=== PATIENT | female | born 1965 | race Hispanic/Latino ===

== ENCOUNTER 2020-01-14 10:47 | Inpatient (IN) | payer OTHER ==
[2020-01-14 12:22] LABS: HEMATOCRIT 31.5 % (36-48); MEAN CORPUSCULAR HEMOGLOBIN 27.4 pg (27.0-33.0); MEAN CORPUSCULAR HGB CONC 33.3 g/dL (32.0-36.0); MEAN CORPUSCULAR VOLUME 82.2 fL (79-99); RED BLOOD CELL COUNT(AUTO) 3.83 MIL/uL (4.00-5.50); RED CELL DISTRIBUTION WIDTH 15.6 % (11.0-15.5); WHITE BLOOD COUNT (AUTO) 4.1 K/uL (4.8-10.8)
[2020-01-14 12:28] LABS: CREATININE 1.2 mg/dL (0.5-1.5); POTASSIUM 4.4 mmol/L (3.5-5.1)
[2020-01-14 12:38] LABS: INR 0.88 (0.85-1.15); PARTIAL THROMBOPLASTIN TIME 25.2 SEC (26.3-35.5); PROTHROMBIN TIME 9.5 SEC (9.6-11.6)
[2020-01-14 12:41] LABS: ALBUMIN 1.3 g/dL (3.5-5.0); BILIRUBIN,TOTAL 0.2 mg/dL (0.2-1.0); THYROID STIMULATING HORMONE 2.13 uIU/mL (0.36-3.74)
[2020-01-14] MEDS ORDERED: LIDOCAINE HCL 2% 20ML ONE (13:52)
[2020-01-14] MEDS ORDERED: MIDAZOLAM HCL 1 MG/ML 2ML VIAL ONE (13:52)
[2020-01-14 13:53] LABS: APPEARANCE,URINE CLEAR (CLEAR); BILIRUBIN,URINE SMALL (NEGATIVE); COLOR,URINE YELLOW (YELLOW); GLUCOSE, URINE (UA) NEGATIVE (NEGATIVE); KETONES,URINE 5 mg/dL (NEGATIVE); LEUKOCYTE ESTERASE ,URINE NEGATIVE (NEGATIVE); NITRATE,URINE NEGATIVE (NEGATIVE); OCCULT BLOOD,URINE LARGE (NEGATIVE); PROTEIN,URINE >=300 mg/dL (NEGATIVE); UROBILINOGEN,URINE 0.2 mg/dL (0.2-1.0)
[2020-01-14 14:19] LABS: BACTERIA,URINE Few /HPF (None Seen); HYALINE CASTS, URINE 0-1 /LPF (0-1 /LPF); MUCUS,URINE Moderate LPF (None Seen); RBC,URINE 0-1 /HPF (0-1); SQUAMOUS EPITHELIAL CELL,UR Rare /HPF (0-2)
[2020-01-14] MEDS ORDERED: FUROSEMIDE 10 MG/ML 4ML VIAL ONE (14:52)
[2020-01-14 17:00] VITALS: BP 120/74
--- NOTE | 2020-01-14 17:00 | NUR ---
ASSESSMENT ORIENTED PT TO ROOM AND CALL LIGHT. RIGHT GROIN INTACT, NO HEMATOMA, PEDAL PULSES PALPABLE. CALL LIGHT WITHIN REACH
[2020-01-14 17:15] VITALS: BP 114/74
[2020-01-14] MEDS ORDERED: SODIUM CHLORIDE 0.9% 10 ML VIAL IVP PRN (17:15)
[2020-01-14 17:30] VITALS: BP 120/68
[2020-01-14 17:45] VITALS: BP 122/77
[2020-01-14] MEDS ORDERED: METO25TA3 PO (18:27)
[2020-01-14] MEDS ORDERED: LISI-617 PO (18:28)
[2020-01-14] MEDS ORDERED: SIMV10TA97 PO (18:28)
[2020-01-14] MEDS ORDERED: FURO40TA7 PO (18:29)
[2020-01-14] MEDS ORDERED: LEVO50TA11 PO (18:30)
[2020-01-14] MEDS ORDERED: MECL-183 PO (18:32)
[2020-01-14] MEDS ORDERED: LEVO750T46 PO (18:32)
[2020-01-14] MEDS: FUROSEMIDE 10 MG/ML 4ML VIAL IV SCH (19:30)
[2020-01-14 19:48] VITALS: BP 106/56
[2020-01-14] MEDS: FAMOTIDINE 20MG TAB 20 MG TAB PO SCH (21:29)
[2020-01-14 23:36] LABS: PROTEIN,URINE RANDOM 1456.8 mg/dL (0-11.9)
[2020-01-14 23:49] VITALS: BP 116/70
[2020-01-15] VITALS (11 sets, daily range): BP systolic 89–117; BP diastolic 48–79
[2020-01-15 04:36] LABS: MEAN CORPUSCULAR HEMOGLOBIN 27.8 pg (27.0-33.0); MEAN CORPUSCULAR HGB CONC 33.3 g/dL (32.0-36.0); MEAN CORPUSCULAR VOLUME 83.3 fL (79-99); PLATELET COUNT (AUTO) 162 K/uL (130-400); RED BLOOD CELL COUNT(AUTO) 3.24 MIL/uL (4.00-5.50); RED CELL DISTRIBUTION WIDTH 15.3 % (11.0-15.5)
[2020-01-15] MEDS: FUROSEMIDE 10 MG/ML 4ML VIAL IV SCH (04:56)
[2020-01-15 05:19] LABS: ALBUMIN 1.1 g/dL (3.5-5.0); BILIRUBIN,TOTAL 0.1 mg/dL (0.2-1.0); CREATININE 1.3 mg/dL (0.5-1.5); PHOSPHORUS 5.2 mg/dL (2.5-4.9); POTASSIUM 4.2 mmol/L (3.5-5.1); TOTAL PROTEIN, SERUM 5.1 g/dL (6.0-8.3)
[2020-01-15] MEDS: LEVOTHYROXINE 50 MCG TABLET PO SCH (06:05)
[2020-01-15 06:09] LABS: BASOPHILS % (MANUAL) 2 % (0-2); EOSINOPHILS % (MANUAL) 2 % (1-6); LYMPHOCYTES % (MANUAL) 22 % (22-44); MAN.DIFF COMMENT-IMPRESSION MANUAL DIFFERENTIAL; MONOCYTES % (MANUAL) 6 % (2-9); SEGMENTED NEUTROPHILS % 68 % (40-70)
[2020-01-15 06:10] LABS: PLATELET MORPHOLOGY COMMENT ADEQUATE
[2020-01-15 06:41] LABS: INR 0.9 (0.85-1.15); PARTIAL THROMBOPLASTIN TIME 25.6 SEC (26.3-35.5); PROTHROMBIN TIME 9.8 SEC (9.6-11.6)
[2020-01-15] MEDS: FAMOTIDINE 20MG TAB 20 MG TAB PO SCH ×2 (09:00→19:51)
[2020-01-15] MEDS: METOPROLOL SUCCINATE 50 MG TAB.SR.24H PO SCH (09:00)
[2020-01-15] MEDS ORDERED: ENOXAPARIN SODIUM 40 MG/0.4 ML SYRINGE SQ SCH (09:00)
[2020-01-15] MEDS ORDERED: MIDAZOLAM HCL 1 MG/ML 2ML VIAL ONE (10:38)
[2020-01-15] MEDS ORDERED: FENTANYL CITRATE PF 50 MCG/1 ML 2ML VIAL ONE (10:38)
--- NOTE | 2020-01-15 11:15 | NUR ---
CT GD RT RENAL BX PROCEDURE PERFORMED BY DR Mateo GODFREY. PUNCTURE SITE RT LOWER BACK AND PATIENT TOLERATED PROCEDURE WELL. SPECIMEN X 4 COLLECTED AND SENT TO LAB. END OF PROCEDURE AT 1050. BIOPSY NEEDLE REMOVED AND DRESSING APPLIED. NO BLEEDING NOTED. REPORT GIVEN TO Denise GARBER RN AND PATIENT TRANSPORTED TO [facility] VIA BED AT 1115. AAO X3 WITH NO C/O PAIN.
--- NOTE | 2020-01-15 12:25 | NUR ---
LT THORACENTESIS @ 1225 DR VELA IN RM. PT PLACED ON NC @ 2L. @ 1232 PROCEDURE TIME OUT DONE @ THIS TIME. @ 1233 LT THORACENTESIS STARTED @ 1238 LT THORACENTESIS ENDED. 600 ML OF PLEURAL FLUID REMOVED. @ 1240 DR VELA OUT OF RM. V/S RECORDED IN V/S SPREADSHEET. PT TOLERATED PROCEDURE WELL. NO DISTRESS NOTED. PT MAY RESUME DIET.
[2020-01-15] MEDS: LISINOPRIL 5 MG TABLET PO SCH (14:22)
[2020-01-15 20:10] LABS: APPEARANCE BODY FLUID SLIGHTLY CLOUDY (CLEAR); COLOR,BODY FLUID LT YELLOW (LT YELLOW); SPECIMENTYPE,BODY FLUID PLEURAL
[2020-01-15 20:11] LABS: BODY FLUID RBC 120 /cu. mm.; BODY FLUID WBC 72 /cu. mm.; TOTAL VOLUME,BODY FLUID 600 mL
[2020-01-15 21:10] LABS: BF LYMPHOCYTE 51 %; BF MONOCYTE 2 %; BF OTHER CELLS 5
[2020-01-16] VITALS (7 sets, daily range): BP systolic 91–127; BP diastolic 55–82
[2020-01-16 04:05] LABS: HEMATOCRIT 26.2 % (36-48); MEAN CORPUSCULAR HEMOGLOBIN 27.6 pg (27.0-33.0); MEAN CORPUSCULAR HGB CONC 32.8 g/dL (32.0-36.0); RED BLOOD CELL COUNT(AUTO) 3.12 MIL/uL (4.00-5.50); RED CELL DISTRIBUTION WIDTH 15.6 % (11.0-15.5); WHITE BLOOD COUNT (AUTO) 3.6 K/uL (4.8-10.8)
[2020-01-16 04:16] LABS: INR 0.92 (0.85-1.15); PARTIAL THROMBOPLASTIN TIME 25.2 SEC (26.3-35.5)
[2020-01-16 04:24] LABS: CREATININE 1.6 mg/dL (0.5-1.5); CRP QUANTITATIVE 7.9 mg/L (0.00-9.0); MAGNESIUM 2.1 mg/dL (1.80-2.40); PHOSPHORUS 4.8 mg/dL (2.5-4.9); POTASSIUM 4.2 mmol/L (3.5-5.1)
[2020-01-16] MEDS: LEVOTHYROXINE 50 MCG TABLET PO SCH (05:48)
[2020-01-16] MEDS: METOPROLOL SUCCINATE 50 MG TAB.SR.24H PO SCH (09:00)
[2020-01-16] MEDS ORDERED: ENOXAPARIN SODIUM 40 MG/0.4 ML SYRINGE SQ SCH (09:00)
[2020-01-16] MEDS: LISINOPRIL 5 MG TABLET PO SCH (09:00)
[2020-01-16] MEDS: FAMOTIDINE 20MG TAB 20 MG TAB PO SCH ×2 (09:32→21:07)
[2020-01-16] MEDS ORDERED: SODIUM CHLORIDE 0.9% 500ML 500 ML IV SCH (16:30)
[2020-01-16] MEDS ORDERED: ACETAMINOPHEN 325 MG TAB PO PRN (16:30)
[2020-01-16] MEDS ORDERED: ALBUMIN (HUMAN) 25% 100 ML IV PRN (16:45)
[2020-01-16] MEDS ORDERED: ONDANSETRON HCL 4 MG/2 ML VIAL IVP PRN (16:45)
[2020-01-16] MEDS: PREDNISONE 10 MG TABLET PO SCH (17:20)
--- NOTE | 2020-01-16 17:23 | NUR ---
CM NOTE/IA MEET WITH PATIENT IN ROOM, PER PATIENT, IS INDEPENDENT WITH ADLS, LIVES WITH SIBLING AND HER 16 YR OLD DAUGHTER, NO DME IN USE, NO HH OR PROVIDER SERVICES IN USE, AND FEELS SAFE TO RETURN HOME. Addendum: 01/16/20 at 1724 by POLO ARITA RN CM Amended: Links added.
[2020-01-16] MEDS: ACETAMINOPHEN 325 MG TAB PO PRN (17:35)
[2020-01-17 03:35] VITALS: BP 124/79
[2020-01-17 03:47] LABS: BASOPHILS % (AUTO) 0.2 % (0.0-5.0); EOSINOPHILS % (AUTO) 0.2 % (0.0-8.0); HEMATOCRIT 26.9 % (36-48); LYMPHOCYTES % (AUTO) 16.2 % (21.0-51.0); MEAN CORPUSCULAR HEMOGLOBIN 27.4 pg (27.0-33.0); MEAN CORPUSCULAR HGB CONC 32.3 g/dL (32.0-36.0); MEAN CORPUSCULAR VOLUME 84.6 fL (79-99); MONOCYTES % (AUTO) 3.7 % (3.0-13.0); NEUTROPHILS % (AUTO) 78.1 % (40.0-77.0); PLATELET COUNT (AUTO) 146 K/uL (130-400); RED BLOOD CELL COUNT(AUTO) 3.18 MIL/uL (4.00-5.50); RED CELL DISTRIBUTION WIDTH 15.4 % (11.0-15.5); WHITE BLOOD COUNT (AUTO) 4.4 K/uL (4.8-10.8)
[2020-01-17 04:03] LABS: ALBUMIN 1.5 g/dL (3.5-5.0); BILIRUBIN,TOTAL 0.1 mg/dL (0.2-1.0); CREATININE 1.2 mg/dL (0.5-1.5); MAGNESIUM 2.3 mg/dL (1.80-2.40); POTASSIUM 4.5 mmol/L (3.5-5.1); TOTAL PROTEIN, SERUM 5.5 g/dL (6.0-8.3)
[2020-01-17 04:08] LABS: B-TYPE NATRIURETIC PEPTIDE 70 pg/mL (0-100)
[2020-01-17] MEDS: LEVOTHYROXINE 50 MCG TABLET PO SCH (06:15)
[2020-01-17 08:20] VITALS: BP 125/76
[2020-01-17] MEDS ORDERED: METOPROLOL SUCCINATE 50 MG TAB.SR.24H PO SCH (09:00)
[2020-01-17] MEDS: FAMOTIDINE 20MG TAB 20 MG TAB PO SCH ×2 (09:11→20:01)
[2020-01-17] MEDS: PREDNISONE 10 MG TABLET PO SCH (09:11)
[2020-01-17] MEDS ORDERED: PRED10B PO (11:25)
[2020-01-17] MEDS ORDERED: METO-408 PO (11:25)
[2020-01-17 11:44] VITALS: BP 108/65
[2020-01-17] MEDS: ACETAMINOPHEN 325 MG TAB PO PRN (15:45)
[2020-01-17 16:00] VITALS: BP 127/82
[2020-01-17 19:58] VITALS: BP 127/74
[2020-01-17 23:52] VITALS: BP 107/69
[2020-01-18 03:55] VITALS: BP 108/69
[2020-01-18] MEDS: LEVOTHYROXINE 50 MCG TABLET PO SCH (06:26)
[2020-01-18 08:00] VITALS: BP 116/82
[2020-01-18] MEDS: FAMOTIDINE 20MG TAB 20 MG TAB PO SCH ×2 (09:43→21:53)
[2020-01-18] MEDS: PREDNISONE 10 MG TABLET PO SCH (09:43)
[2020-01-18 12:00] VITALS: BP 110/81
[2020-01-18] MEDS: SILDENAFIL CITRATE 20 MG TABLET PO SCH ×2 (13:06→21:53)
[2020-01-18 16:00] VITALS: BP 118/80
[2020-01-18 20:00] VITALS: BP 116/73
[2020-01-18] MEDS: ACETAMINOPHEN 325 MG TAB PO PRN (22:04)
[2020-01-18 23:40] VITALS: BP 115/71
[2020-01-19 04:06] VITALS: BP 121/68
[2020-01-19 05:05] LABS: BASOPHILS % (AUTO) 0.2 % (0.0-5.0); EOSINOPHILS % (AUTO) 1.4 % (0.0-8.0); HEMATOCRIT 27.5 % (36-48); LYMPHOCYTES % (AUTO) 29.5 % (21.0-51.0); MEAN CORPUSCULAR HEMOGLOBIN 27.4 pg (27.0-33.0); MEAN CORPUSCULAR HGB CONC 33.1 g/dL (32.0-36.0); MEAN CORPUSCULAR VOLUME 82.8 fL (79-99); NEUTROPHILS % (AUTO) 57.1 % (40.0-77.0); PLATELET COUNT (AUTO) 153 K/uL (130-400); RED BLOOD CELL COUNT(AUTO) 3.32 MIL/uL (4.00-5.50); RED CELL DISTRIBUTION WIDTH 15.4 % (11.0-15.5); WHITE BLOOD COUNT (AUTO) 5.2 K/uL (4.8-10.8)
[2020-01-19 05:25] LABS: ALBUMIN 1.1 g/dL (3.5-5.0); MAGNESIUM 2.2 mg/dL (1.80-2.40); PHOSPHORUS 3.8 mg/dL (2.5-4.9); POTASSIUM 3.9 mmol/L (3.5-5.1); TOTAL PROTEIN, SERUM 4.9 g/dL (6.0-8.3)
[2020-01-19 05:37] LABS: BILIRUBIN,TOTAL 0.1 mg/dL (0.2-1.0)
[2020-01-19] MEDS: LEVOTHYROXINE 50 MCG TABLET PO SCH (06:21)
[2020-01-19 08:00] VITALS: BP 107/60
[2020-01-19 08:29] LABS: ABG BASE EXCESS 2.3 mmol/L (-2.0-3.0); ABG HCO3 26.3 mmol/L (21.0-28.0); ABG OXYGEN SATURATION 98.1 % (95.0-99.0); ABG PCO2 39 mmHg (32-45)
[2020-01-19] MEDS: SILDENAFIL CITRATE 20 MG TABLET PO SCH ×2 (09:26→14:47)
[2020-01-19] MEDS: PREDNISONE 10 MG TABLET PO SCH (09:27)
[2020-01-19] MEDS: FAMOTIDINE 20MG TAB 20 MG TAB PO SCH (09:27)
[2020-01-19] MEDS ORDERED: SILD20TA14 PO (11:35)
[2020-01-19 12:00] VITALS: BP 90/62
--- NOTE | 2020-01-19 15:42 | NUR ---
D/C INSTRUCTIONS GIVEN TO PATIENT INCLUDING PERICARDIAL EFFUSION AFTER CARE, HOME OXYGEN USE, NEW PERSCRIPTION FOR VIAGRA AND PREDNISONE; AND TO RETURN TO ED OR PCP IF SOB DEVELEPS AND NOT IMPROVED BY WEARING HOME OXYGEN OR ANY OTHER PROBLEMS OR CONCERNS; PT INSTRUCTED TO CALL DR Raina BETH OFFICE FOR F/U IN 1 WEEK IN REGARDS TO RENAL BIOPSY RESULTS, I WAS NOT ABLE TO MAKE APPOINTMENT BEING IT IS A MONDAY; I HAVE ALSO GIVEN HER THE NUMBER TO DR raina WOLF FROM [facility] FOR HER TO F/U WITH THEM; AND KEEP SCHEDULED APPOINTMENT ALREADY MADE WITH DR MCINTOSH IN [place]. PT STATED UNDERSTANDING OF ALL D/C INSTRUCTIONS; IV ACCESS REMOVED; PT HAS CALLED HER FAMILY TO COME AND PICK HER UP.
[2020-02-21] MEDS ORDERED: CYCL25CA10 PO (01:55)
[2020-02-26] MEDS ORDERED: Folic Acid/Vitamin B Comp W-C PO (14:57)
[2020-02-26] MEDS ORDERED: PRED20B PO (14:57)
[2020-02-26] MEDS ORDERED: MYCO250C36 PO (14:57)
[2020-02-26] MEDS ORDERED: COLC0.6T70 PO (14:57)
== END 2020-01-19 17:00 | disposition home or self-care (01) | DRG 286 ==
LOC: EDH 10:47 → OBSVTOIN 11:56 → EDHIP 11:56 → INTOOBSV 11:56 → 4DH 17:33
PROVIDERS: ADMIT Internal Medicine Critical Care Medicine; ATTEND Internal Medicine Critical Care Medicine
PROC: 4A023N6 Measurement of Cardiac Sampling and Pressure, Right Heart, Percutaneous Approach (ICD-10-PCS; 2020-01-14)
PROC: 0TB03ZX Excision of Right Kidney, Percutaneous Approach, Diagnostic (ICD-10-PCS; principal; 2020-01-15)
PROC: BT111ZZ Fluoroscopy of Right Kidney using Low Osmolar Contrast (ICD-10-PCS; 2020-01-15)
PROC: 0W9B3ZZ Drainage of Left Pleural Cavity, Percutaneous Approach (ICD-10-PCS; 2020-01-15)
DX: I31.3 Pericardial effusion (noninflammatory) (principal); J96.01 Acute respiratory failure with hypoxia; J90 Pleural effusion, not elsewhere classified; N17.9 Acute kidney failure, unspecified; M06.9 Rheumatoid arthritis, unspecified; E06.3 Autoimmune thyroiditis; N18.9 Chronic kidney disease, unspecified; I12.9 Hypertensive chronic kidney disease with stage 1 through stage 4 chronic kidney disease, or unspecified chronic kidney disease; I27.21 Secondary pulmonary arterial hypertension; E87.70 Fluid overload, unspecified; D64.9 Anemia, unspecified; E11.22 Type 2 diabetes mellitus with diabetic chronic kidney disease; E78.00 Pure hypercholesterolemia, unspecified; F41.9 Anxiety disorder, unspecified; E78.5 Hyperlipidemia, unspecified; M32.9 Systemic lupus erythematosus, unspecified; E86.9 Volume depletion, unspecified; Z79.52 Long term (current) use of systemic steroids; Z79.899 Other long term (current) drug therapy; Z87.441 Personal history of nephrotic syndrome; Z83.3 Family history of diabetes mellitus; Z82.49 Family history of ischemic heart disease and other diseases of the circulatory system
CPT/HCPCS: 36415; 36600; 50200; 70450; 71045; 71046; 77012; 80048; 80053; 81001; 82570; 82803; 82945; 83520; 83615; 83735; 83880; 83986; 84100; 84156; 84157; 84439; 84443; 85025; 85027; 85610; 85730; 86038; 86140; 86200; 86215; 86235; 86255; 87071; 87088; 87116; 87205; 87206; 89051; 93005; 93451; 93970; 94760; 99152; 99153; 99156; 99157; C1729; C1894; G0378; J1644; J1650; J1940; J2250; J3010; J3490; J7040; J7512; P9046

== ENCOUNTER 2020-02-04 17:58 | Inpatient (IN) | payer OTHER ==
[~2020-02-04] VITALS: Ht 149.9 cm; Wt 78.8 kg
[~2020-02-04 17:58] MED LIST: LEVO50TA11 PO; MECL-183 PO; PRED10B PO; SIMV10TA97 PO
[2020-02-04 19:41] LABS: BASOPHILS % (AUTO) 0.6 % (0.0-5.0); EOSINOPHILS % (AUTO) 3.9 % (0.0-8.0); HEMATOCRIT 26.5 % (36-48); LYMPHOCYTES % (AUTO) 9.5 % (21.0-51.0); MEAN CORPUSCULAR HEMOGLOBIN 27.3 pg (27.0-33.0); MEAN CORPUSCULAR HGB CONC 32.5 g/dL (32.0-36.0); MEAN CORPUSCULAR VOLUME 84.1 fL (79-99); MONOCYTES % (AUTO) 9.2 % (3.0-13.0); NEUTROPHILS % (AUTO) 76.5 % (40.0-77.0); PLATELET COUNT (AUTO) 141 K/uL (130-400); RED BLOOD CELL COUNT(AUTO) 3.15 MIL/uL (4.00-5.50); RED CELL DISTRIBUTION WIDTH 15.9 % (11.0-15.5); WHITE BLOOD COUNT (AUTO) 3.6 K/uL (4.8-10.8)
[2020-02-04 20:05] LABS: INR 0.84 (0.85-1.15); PARTIAL THROMBOPLASTIN TIME 25.3 SEC (26.3-35.5); PROTHROMBIN TIME 9.1 SEC (9.6-11.6)
[2020-02-04 20:22] LABS: POTASSIUM 5.2 mmol/L (3.5-5.1)
[2020-02-04 22:30] VITALS: BP 121/51
--- NOTE | 2020-02-04 22:40 | NUR ---
received report from LANEY vila from the ER. she claims that doctor jonathan frankel was already notified in the daytime.
[2020-02-04] MEDS ORDERED: SILD20TA14 PO (22:49)
[2020-02-04] MEDS ORDERED: CYCL50CA3 PO (22:49)
[2020-02-04] MEDS ORDERED: OMEP40CA13 PO (22:49)
[2020-02-04] MEDS ORDERED: CYCL25CA10 PO (22:49)
[2020-02-04] MEDS: SODIUM CHLORIDE 0.9% 1000ML 1,000 ML IV SCH (22:54)
[2020-02-05] VITALS (26 sets, daily range): BP systolic 96–149; BP diastolic 55–85
--- NOTE | 2020-02-05 13:02 | NUR ---
MET W/ PATIENT AT BEDSIDE FOR IA- PT ON O2, CLEARLY SHORT OF BREATH. SISTER AT BEDSIDE, HAS BEEN ON OXYGEN SINCE LAST ADMISSION. LIVES WITH SISTER TREVER AND HER SON.TREVER WILL PROVIDE TRANSPORT HOME. NO DME, NO HH, NO PROVIDER- [facility], ON SICK LEAVE RIGHT NOW DCP IS HOME. PENDING [facility] CONSULT FOR POSS PERICARDIAL WINDO Addendum: 02/05/20 at 1305 by LARRY CELIS RN Amended: Links added.
--- NOTE | 2020-02-05 13:07 | NUR ---
DISCHARGE DISPOSITION EXPECTED TO BE TO HOME BUT DEPENDS ON SURGERY /ROCOVERY Addendum: 02/05/20 at 1307 by LARRY CELIS RN CM Amended: Links added.
[2020-02-05 14:24] LABS: HEMATOCRIT 24.7 % (36-48); MEAN CORPUSCULAR HEMOGLOBIN 27.4 pg (27.0-33.0); MEAN CORPUSCULAR HGB CONC 32.4 g/dL (32.0-36.0); MEAN CORPUSCULAR VOLUME 84.6 fL (79-99); RED BLOOD CELL COUNT(AUTO) 2.92 MIL/uL (4.00-5.50); RED CELL DISTRIBUTION WIDTH 15.6 % (11.0-15.5); WHITE BLOOD COUNT (AUTO) 3.1 K/uL (4.8-10.8)
[2020-02-05 14:33] LABS: CREATININE 1.1 mg/dL (0.5-1.5); POTASSIUM 5.6 mmol/L (3.5-5.1)
[2020-02-05 14:34] LABS: INR 0.86 (0.85-1.15); PARTIAL THROMBOPLASTIN TIME 25.2 SEC (26.3-35.5); PROTHROMBIN TIME 9.3 SEC (9.6-11.6)
[2020-02-05] MEDS ORDERED: CEFAZOLIN SODIUM 1 GM VIAL IVP PRN (17:00)
[2020-02-05] MEDS ORDERED: POTASSIUM CHLORIDE 20MEQ/100ML 100 ML IV PRN (18:30)
[2020-02-05] MEDS ORDERED: ACETAMINOPHEN-CODEINE 300/30MG TAB PO PRN (18:30)
[2020-02-05] MEDS ORDERED: MAGNESIUM 2GM PREMIX 50ML 50 ML IV PRN (18:30)
[2020-02-05] MEDS ORDERED: GLUCAGON 1MG KIT 1 MG ML IM PRN (18:30)
[2020-02-05] MEDS ORDERED: HYDRALAZINE HCL 20 MG/ML VIAL IV PRN (18:30)
[2020-02-05] MEDS ORDERED: MECLIZINE HCL 12.5 MG TABLET PO PRN (18:30)
[2020-02-05] MEDS ORDERED: IPRATROPIUM/ALBUTEROL SULFATE 3 ML SOLUTION IH PRN (18:30)
[2020-02-05] MEDS ORDERED: LIDOCAINE HCL-MPF 1% 2ML VIAL IV PRN (18:30)
[2020-02-05] MEDS: FUROSEMIDE 10 MG/ML 4ML VIAL IV SCH (18:30)
[2020-02-05] MEDS ORDERED: LACTULOSE 20 GM/30 ML UDCUP PO PRN (18:30)
[2020-02-05] MEDS ORDERED: ZOLPIDEM TARTRATE 5 MG TAB PO PRN (18:30)
[2020-02-05] MEDS ORDERED: CEFAZOLIN SODIUM 1 GM VIAL ONE (19:08)
[2020-02-05] MEDS ORDERED: OCTYL 2-CYANOACRYLATE 1 EACH TP ONE (19:08)
[2020-02-05] MEDS: SODIUM CHLORIDE 0.9% 1000ML 1,000 ML IV SCH (19:30)
[2020-02-05] MEDS ORDERED: MIDAZOLAM HCL 1 MG/ML 2ML VIAL ONE (20:14)
[2020-02-05] MEDS ORDERED: PROPOFOL 10 MG/ML 20ML VIAL IV ONE (20:15)
[2020-02-05] MEDS ORDERED: ROCURONIUM 10MG/1ML SYR 10 MG/ML ML ONE (20:15)
[2020-02-05] MEDS ORDERED: LIDOCAINE PF 2% 5ML ABBOJECT ONE (20:15)
[2020-02-05] MEDS ORDERED: SUGAMMADEX SODIUM 200 MG/2 ML VIAL IV ONE (20:16)
[2020-02-05] MEDS ORDERED: KETAMINE 50MG/ML SYRINGE 50 MG/ML DISP.SYRIN IV ONE (20:23)
[2020-02-05] MEDS ORDERED: LIDOCAINE HCL 1% MDV 50ML VIAL ONE (20:43)
[2020-02-05] MEDS: SILDENAFIL CITRATE 20 MG TABLET PO SCH (21:00)
[2020-02-05] MEDS: SIMVASTATIN 10 MG TABLET PO SCH (21:00)
[2020-02-05] MEDS: CYCLOPHOSPHAMIDE 50 MG PO SCH (21:00)
[2020-02-05] MEDS: INSULIN HUMULIN R 100 UNIT/ML 3ML SQ SCH (21:00)
[2020-02-05] MEDS ORDERED: TRAMADOL HCL 50 MG TABLET PO PRN (21:15)
[2020-02-05] MEDS ORDERED: MORPHINE SULFATE 2 MG/ML 1ML SYG ONE (21:47)
[2020-02-05] MEDS: TRAMADOL HCL 50 MG TABLET PO PRN (22:56)
[2020-02-05 23:16] LABS: AMYLASE,BODY FLUID 28 U/L; GLUCOSE,BODY FLUID 69 mg/dL (1-40)
[2020-02-06] VITALS (28 sets, daily range): BP systolic 90–149; BP diastolic 54–83
[2020-02-06 00:28] LABS: APPEARANCE BODY FLUID BLOODY (CLEAR); COLOR,BODY FLUID RED (LT YELLOW); SPECIMENTYPE,BODY FLUID PERICARDIAL; TOTAL VOLUME,BODY FLUID 20 mL
[2020-02-06 00:31] LABS: BODY FLUID WBC 158 /cu. mm.
[2020-02-06 00:32] LABS: BODY FLUID RBC 37303 /cu. mm.
[2020-02-06 00:41] LABS: BF LYMPHOCYTE 19 %; BF MONOCYTE 10 %
[2020-02-06 00:42] LABS: BF BASOPHIL 1 %; BF EOSINOPHIL 1 %; BF MESOTHELIAL 24 %
[2020-02-06 01:09] LABS: PH, BODY FLUID 8
[2020-02-06] MEDS: SODIUM CHLORIDE 0.9% 1000ML 1,000 ML IV SCH (01:58)
[2020-02-06 03:56] LABS: BASOPHILS % (AUTO) 0.2 % (0.0-5.0); EOSINOPHILS % (AUTO) 0.3 % (0.0-8.0); LYMPHOCYTES % (AUTO) 3.7 % (21.0-51.0); MEAN CORPUSCULAR HEMOGLOBIN 27.3 pg (27.0-33.0); MEAN CORPUSCULAR VOLUME 85.2 fL (79-99); MONOCYTES % (AUTO) 4.2 % (3.0-13.0); NEUTROPHILS % (AUTO) 90.9 % (40.0-77.0); PLATELET COUNT (AUTO) 155 K/uL (130-400); RED BLOOD CELL COUNT(AUTO) 3.52 MIL/uL (4.00-5.50); RED CELL DISTRIBUTION WIDTH 15.6 % (11.0-15.5); WHITE BLOOD COUNT (AUTO) 5.7 K/uL (4.8-10.8)
[2020-02-06] MEDS ORDERED: CEFAZOLIN SODIUM 1 GM VIAL IVP SCH (04:00)
[2020-02-06 04:08] LABS: INR 0.85 (0.85-1.15); PARTIAL THROMBOPLASTIN TIME 25.2 SEC (26.3-35.5); PROTHROMBIN TIME 9.2 SEC (9.6-11.6)
[2020-02-06 04:12] LABS: CREATININE 0.9 mg/dL (0.5-1.5); PHOSPHORUS 5.3 mg/dL (2.5-4.9); POTASSIUM 5.7 mmol/L (3.5-5.1)
[2020-02-06 04:23] LABS: MAGNESIUM 2.6 mg/dL (1.80-2.40)
[2020-02-06] MEDS: DEXTROSE 50%-WATER 50 ML DISP.SYRIN IV PRN (06:26)
[2020-02-06] MEDS: INSULIN HUMULIN R 100 UNIT/ML 3ML SQ SCH ×4 (06:27→19:57)
[2020-02-06] MEDS: FUROSEMIDE 10 MG/ML 4ML VIAL IV SCH ×2 (06:27→17:51)
[2020-02-06] MEDS: LEVOTHYROXINE 50 MCG TABLET PO SCH (06:27)
--- NOTE | 2020-02-06 08:20 | NUR ---
Bayron CONCEPCION at bedside and updated on patient. Lasix 20 mg ordered and given for potassium 5.7.
[2020-02-06] MEDS ORDERED: FUROSEMIDE 10 MG/ML 2ML VIAL IV SCH (08:30)
[2020-02-06] MEDS: SILDENAFIL CITRATE 20 MG TABLET PO SCH ×3 (08:33→20:14)
[2020-02-06] MEDS: PANTOPRAZOLE SODIUM 40 MG TABLET.DR PO SCH (08:33)
[2020-02-06] MEDS: CYCLOPHOSPHAMIDE 50 MG PO SCH ×2 (08:33→20:14)
[2020-02-06] MEDS: TRAMADOL HCL 50 MG TABLET PO PRN ×2 (10:02→16:00)
--- NOTE | 2020-02-06 12:06 | NUR ---
Rhina THOMAS at bedside.
--- NOTE | 2020-02-06 14:21 | NUR ---
Dr. Stephens at bedside.
--- NOTE | 2020-02-06 14:34 | NUR ---
Dr. Kline at bedside.
[2020-02-06] MEDS: SIMVASTATIN 10 MG TABLET PO SCH (20:14)
[2020-02-07] VITALS (7 sets, daily range): BP systolic 87–113; BP diastolic 51–75
--- NOTE | 2020-02-07 03:41 | NUR ---
LOW BP CALLED AND SPOKE WITH JAZZ CLAYTON ENDOSCOPY SUPPORT SPECIALIST FOR [facility], INFORMED HIM THAT PATIENTS BP WAS 87/51 HR 111 PATIENT ASYMPTOMATIC. ORDERS RECEIVED TO GIVE 1L NS BOLUS AND HOLD AM DOSE OF LASIX.
[2020-02-07] MEDS ORDERED: SODIUM CHLORIDE 0.9% 1000ML 1,000 ML IV ONE ×2 (03:45→04:00)
[2020-02-07 04:45] LABS: HEMATOCRIT 29.5 % (36-48); MEAN CORPUSCULAR HEMOGLOBIN 27.1 pg (27.0-33.0); MEAN CORPUSCULAR HGB CONC 32.2 g/dL (32.0-36.0); MEAN CORPUSCULAR VOLUME 84.3 fL (79-99); RED BLOOD CELL COUNT(AUTO) 3.5 MIL/uL (4.00-5.50); RED CELL DISTRIBUTION WIDTH 15.7 % (11.0-15.5); WHITE BLOOD COUNT (AUTO) 7.7 K/uL (4.8-10.8)
[2020-02-07] MEDS: FUROSEMIDE 10 MG/ML 4ML VIAL IV SCH ×2 (05:28→17:03)
[2020-02-07 05:30] LABS: CREATININE 1.7 mg/dL (0.5-1.5); MAGNESIUM 2.2 mg/dL (1.80-2.40); PHOSPHORUS 6.4 mg/dL (2.5-4.9)
[2020-02-07] MEDS: LEVOTHYROXINE 50 MCG TABLET PO SCH (05:32)
[2020-02-07] MEDS: INSULIN HUMULIN R 100 UNIT/ML 3ML SQ SCH ×4 (05:45→20:44)
--- NOTE | 2020-02-07 05:51 | NUR ---
CRITICAL LAB CALLED ANSWERING SERVICE FOR [facility], TO INFORM HIM THAT PATIENT HAS POTASSIUM OF 6.0. PENDING CALL BACK.
[2020-02-07] MEDS ORDERED: SODIUM POLYSTYRENE SULFONATE 15 GM/60 ML ML PO SCH (08:00)
[2020-02-07] MEDS: CYCLOPHOSPHAMIDE 50 MG PO SCH ×2 (09:00→20:43)
[2020-02-07] MEDS: PANTOPRAZOLE SODIUM 40 MG TABLET.DR PO SCH (10:26)
[2020-02-07] MEDS: SILDENAFIL CITRATE 20 MG TABLET PO SCH ×3 (10:26→20:44)
[2020-02-07] MEDS ORDERED: ONDANSETRON HCL 4 MG/2 ML VIAL ONE (12:52)
[2020-02-07] MEDS ORDERED: SODIUM POLYSTYRENE SULFONATE 15 GM/60 ML ML PO PRN (18:45)
[2020-02-07] MEDS: DEXTROSE 50%-WATER 50 ML DISP.SYRIN IV PRN (20:30)
--- NOTE | 2020-02-07 20:30 | NUR ---
Dr Samuel Ct rounded on patient. Per Shell Sorter, hold lasix.
--- NOTE | 2020-02-07 20:40 | NUR ---
D50 administered for glucose of 49. Non symptomatic. Patient conversing, answered questions appropriately.
[2020-02-07] MEDS: SIMVASTATIN 10 MG TABLET PO SCH (20:45)
[2020-02-08 03:00] VITALS: BP 116/59
[2020-02-08 04:32] LABS: MEAN CORPUSCULAR HGB CONC 32.4 g/dL (32.0-36.0); MEAN CORPUSCULAR VOLUME 83.3 fL (79-99); RED CELL DISTRIBUTION WIDTH 15.6 % (11.0-15.5); WHITE BLOOD COUNT (AUTO) 3.4 K/uL (4.8-10.8)
[2020-02-08 04:39] LABS: CREATININE 1.8 mg/dL (0.5-1.5); POTASSIUM 4.4 mmol/L (3.5-5.1)
--- NOTE | 2020-02-08 04:53 | NUR ---
Patient resting in bed. A/ox3. Denies pain. C/o sob with exertion. Using 1L nasal canula. Patient has had 2 BMs during the shift. Chest tube in place minimal drainage. Patient presents with 2+ generalized pitting edema. Will continue to monitor
[2020-02-08] MEDS: LEVOTHYROXINE 50 MCG TABLET PO SCH (05:36)
[2020-02-08] MEDS: INSULIN HUMULIN R 100 UNIT/ML 3ML SQ SCH ×4 (05:36→20:15)
[2020-02-08] MEDS: FUROSEMIDE 10 MG/ML 4ML VIAL IV SCH (05:37)
[2020-02-08 08:15] VITALS: BP 107/53
[2020-02-08] MEDS: CYCLOPHOSPHAMIDE 50 MG PO SCH ×2 (09:00→20:05)
[2020-02-08] MEDS: PANTOPRAZOLE SODIUM 40 MG TABLET.DR PO SCH (09:37)
[2020-02-08] MEDS: SILDENAFIL CITRATE 20 MG TABLET PO SCH ×3 (09:40→20:04)
--- NOTE | 2020-02-08 10:41 | NUR ---
DR. KC AT BEDSIDE; OKAY TO D/C PERICARD CHESTTUBE STATED I SAW THE CHEST XRAY OKAY TO CHEST TUBE.
--- NOTE | 2020-02-08 11:10 | NUR ---
REMOVED MEDIASTINAL AND PLEURAL CHEST TUBE. SUTURES TIED IN PLACE. TOLERATED WELL WITH MINIMAL DISCOMFORT. APPLIED 4X4 GAUZE AND SECURED WITH PAPER TAPE. REPORTED OFF TO LANEY ORTEGA.
[2020-02-08 11:46] VITALS: BP 114/59
[2020-02-08 16:00] VITALS: BP 108/60
[2020-02-08] MEDS: FUROSEMIDE 20 MG TABLET PO SCH (16:45)
[2020-02-08 19:04] VITALS: BP 103/61
[2020-02-08] MEDS ORDERED: ACETAMINOPHEN 325 MG TAB PO PRN (20:00)
[2020-02-08] MEDS ORDERED: ACETAMINOPHEN 325 MG TAB ONE (20:02)
[2020-02-08] MEDS: SIMVASTATIN 10 MG TABLET PO SCH (20:05)
[2020-02-08 23:28] VITALS: BP 102/57
[2020-02-09 03:15] VITALS: BP 117/61
[2020-02-09 05:29] LABS: HEMATOCRIT 23.5 % (36-48); MEAN CORPUSCULAR HEMOGLOBIN 27.6 pg (27.0-33.0); MEAN CORPUSCULAR HGB CONC 33.2 g/dL (32.0-36.0); RED BLOOD CELL COUNT(AUTO) 2.83 MIL/uL (4.00-5.50); RED CELL DISTRIBUTION WIDTH 15.5 % (11.0-15.5); WHITE BLOOD COUNT (AUTO) 2.5 K/uL (4.8-10.8)
[2020-02-09 05:39] LABS: CREATININE 1.5 mg/dL (0.5-1.5); MAGNESIUM 2.2 mg/dL (1.80-2.40); PHOSPHORUS 4.8 mg/dL (2.5-4.9); POTASSIUM 4.2 mmol/L (3.5-5.1)
[2020-02-09] MEDS: INSULIN HUMULIN R 100 UNIT/ML 3ML SQ SCH ×4 (05:48→21:00)
[2020-02-09] MEDS: LEVOTHYROXINE 50 MCG TABLET PO SCH (05:48)
[2020-02-09] MEDS: ONDANSETRON HCL 4 MG/2 ML VIAL IVP PRN (07:58)
[2020-02-09 08:00] VITALS: BP 110/64
[2020-02-09] MEDS: PANTOPRAZOLE SODIUM 40 MG TABLET.DR PO SCH (08:06)
[2020-02-09] MEDS: CYCLOPHOSPHAMIDE 50 MG PO SCH ×2 (08:06→21:00)
[2020-02-09] MEDS: FUROSEMIDE 20 MG TABLET PO SCH (08:06)
[2020-02-09] MEDS: SILDENAFIL CITRATE 20 MG TABLET PO SCH ×3 (08:08→21:12)
[2020-02-09 12:00] VITALS: BP 109/68
[2020-02-09 16:00] VITALS: BP 117/68
[2020-02-09] MEDS ORDERED: FUROSEMIDE 10 MG/ML 2ML VIAL IV SCH (18:45)
[2020-02-09 19:01] VITALS: BP 103/63
[2020-02-09] MEDS ORDERED: FUROSEMIDE 10 MG/ML 2ML VIAL ONE (19:26)
[2020-02-09] MEDS: SIMVASTATIN 10 MG TABLET PO SCH (21:12)
[2020-02-09] MEDS: HEPARIN SODIUM 5000UNIT/ML 1ML VIAL SQ SCH (21:19)
[2020-02-09 23:55] VITALS: BP 103/54
[2020-02-10] VITALS (8 sets, daily range): BP systolic 99–115; BP diastolic 56–70
[2020-02-10] MEDS: TRAMADOL HCL 50 MG TABLET PO PRN ×2 (00:01→22:50)
[2020-02-10] MEDS: FUROSEMIDE 10 MG/ML 2ML VIAL IV SCH ×2 (02:13→08:19)
[2020-02-10] MEDS: INSULIN HUMULIN R 100 UNIT/ML 3ML SQ SCH ×4 (05:42→20:31)
[2020-02-10] MEDS: LEVOTHYROXINE 50 MCG TABLET PO SCH (05:49)
[2020-02-10 05:52] LABS: ALBUMIN 0.8 g/dL (3.5-5.0); BILIRUBIN,TOTAL 0.1 mg/dL (0.2-1.0); CREATININE 1.3 mg/dL (0.5-1.5); POTASSIUM 4.2 mmol/L (3.5-5.1); TOTAL PROTEIN, SERUM 4.3 g/dL (6.0-8.3)
[2020-02-10] MEDS: HEPARIN SODIUM 5000UNIT/ML 1ML VIAL SQ SCH ×2 (08:14→21:58)
[2020-02-10] MEDS: ONDANSETRON HCL 4 MG/2 ML VIAL IVP PRN (08:15)
[2020-02-10] MEDS: PANTOPRAZOLE SODIUM 40 MG TABLET.DR PO SCH (08:15)
[2020-02-10] MEDS: SILDENAFIL CITRATE 20 MG TABLET PO SCH ×3 (08:15→21:55)
[2020-02-10] MEDS: CYCLOPHOSPHAMIDE 50 MG PO SCH (08:26)
--- NOTE | 2020-02-10 14:56 | NUR ---
RD NOTIFICATION Pt admitted with Pericardial effusion. Pt with Heart healthy diet order in place, no reports of GI distress, Fair PO intake at 50-75%. Pt with Obesity Class II (BMI 35.5). Low albumin. Recommend continue Heart Healthy Diet order Recommend protein supplementation of 60mL ProMod BID. RD to continue to monitor. Please notify as additional nutrition concerns arise. Thank you. Addendum: 02/10/20 at [address] Amended: Links added.
--- NOTE | 2020-02-10 20:20 | NUR ---
PAGE SENT ;OUT REGARDING VENOUS DOPPLER ULTRASOUND RT ARM, NO RETURN CALL [phone] THAKUR AWARE AT THIS TIME OF RESULTS OF VENOUS DOPPLER ULTRASOUND, NO ORDERS RECEIVED AT THIS TIME.
[2020-02-10] MEDS: SIMVASTATIN 10 MG TABLET PO SCH (21:55)
[2020-02-10] MEDS: CYCLOPHOSPHAMIDE PO SCH (22:06)
[2020-02-11 03:57] VITALS: BP 101/61
[2020-02-11 05:09] LABS: HEMATOCRIT 25.1 % (36-48); MEAN CORPUSCULAR HEMOGLOBIN 27.8 pg (27.0-33.0); MEAN CORPUSCULAR HGB CONC 33.1 g/dL (32.0-36.0); MEAN CORPUSCULAR VOLUME 83.9 fL (79-99); PLATELET COUNT (AUTO) 108 K/uL (130-400); RED BLOOD CELL COUNT(AUTO) 2.99 MIL/uL (4.00-5.50); RED CELL DISTRIBUTION WIDTH 15.2 % (11.0-15.5); WHITE BLOOD COUNT (AUTO) 2.1 K/uL (4.8-10.8)
[2020-02-11 05:23] LABS: CREATININE 1.2 mg/dL (0.5-1.5); POTASSIUM 4.4 mmol/L (3.5-5.1)
[2020-02-11 05:29] LABS: BAND NEUTROPHILS % (MANUAL) 1 % (0-2); BASOPHILS % (MANUAL) 1 % (0-2); EOSINOPHILS % (MANUAL) 5 % (1-6); LYMPHOCYTES % (MANUAL) 9 % (22-44); MAN.DIFF COMMENT-IMPRESSION MANUAL DIFFERENTIAL; MONOCYTES % (MANUAL) 7 % (2-9); SEGMENTED NEUTROPHILS % 77 % (40-70)
[2020-02-11] MEDS: INSULIN HUMULIN R 100 UNIT/ML 3ML SQ SCH ×4 (05:56→21:00)
[2020-02-11] MEDS: LEVOTHYROXINE 50 MCG TABLET PO SCH (05:56)
[2020-02-11] MEDS: SILDENAFIL CITRATE 20 MG TABLET PO SCH ×3 (07:52→21:00)
[2020-02-11] MEDS: PANTOPRAZOLE SODIUM 40 MG TABLET.DR PO SCH (07:52)
[2020-02-11] MEDS: CYCLOPHOSPHAMIDE PO SCH ×2 (07:52→21:00)
[2020-02-11] MEDS: ONDANSETRON HCL 4 MG/2 ML VIAL IVP PRN (07:52)
[2020-02-11] MEDS: HEPARIN SODIUM 5000UNIT/ML 1ML VIAL SQ SCH ×2 (07:59→21:00)
[2020-02-11 08:00] VITALS: BP 120/67
--- NOTE | 2020-02-11 08:00 | NUR ---
ASSESSMENT PT IS AAOX3 DENIES CP DENIES SOB. COMPLAINS OF SLIGHT NAUSEA, ZOFRAN GIVEN. DRESSING TO MID CHEST IS CLEAN DRY AND INTACT. SITTING UPRIGHT IN BED. CALL LIGHT WITHIN REACH.
[2020-02-11] MEDS ORDERED: FUROSEMIDE 10 MG/ML 2ML VIAL IV SCH ×2 (09:00→21:00)
[2020-02-11 11:20] VITALS: BP 105/66
--- NOTE | 2020-02-11 14:00 | NUR ---
LEFT SIDE THORACENTESIS AT BEDSIDE BY DR YIP 900ML YELLOW FLUID REMOVED. PT TOLERATED WELL. NO COMPLAINTS. XRAY DONE.
[2020-02-11 16:00] VITALS: BP 107/64
--- NOTE | 2020-02-11 16:00 | NUR ---
STATUS RESTING IN BED, BREATHING PATTERN IS EVEN AND UNLABORED. NO VISIBLE SIGNS OF DISTRESS NOTED.
[2020-02-11 17:14] LABS: SPECIMENTYPE,BODY FLUID PLEURAL
[2020-02-11 17:15] LABS: APPEARANCE BODY FLUID CLEAR (CLEAR); COLOR,BODY FLUID YELLOW (LT YELLOW); TOTAL VOLUME,BODY FLUID 900 mL
[2020-02-11 17:16] LABS: BODY FLUID RBC 61 /cu. mm.; BODY FLUID WBC 216 /cu. mm.
[2020-02-11 19:52] VITALS: BP 122/71
[2020-02-11 20:19] LABS: BF EOSINOPHIL 3 %; BF LYMPHOCYTE 42 %; BF MONOCYTE 1 %
[2020-02-11] MEDS: SIMVASTATIN 10 MG TABLET PO SCH (21:00)
[2020-02-12 00:24] LABS: PROTEIN,URINE RANDOM 81.2 mg/dL (0-11.9)
[2020-02-12 01:06] VITALS: BP 105/66
[2020-02-12 04:31] VITALS: BP 101/63
[2020-02-12 05:19] LABS: BASOPHILS % (AUTO) 0.6 % (0.0-5.0); EOSINOPHILS % (AUTO) 6.7 % (0.0-8.0); HEMATOCRIT 22.9 % (36-48); LYMPHOCYTES % (AUTO) 11.7 % (21.0-51.0); MEAN CORPUSCULAR HEMOGLOBIN 28.2 pg (27.0-33.0); MEAN CORPUSCULAR HGB CONC 33.6 g/dL (32.0-36.0); MEAN CORPUSCULAR VOLUME 83.9 fL (79-99); MONOCYTES % (AUTO) 13.3 % (3.0-13.0); NEUTROPHILS % (AUTO) 66.6 % (40.0-77.0); PLATELET COUNT (AUTO) 124 K/uL (130-400); RED BLOOD CELL COUNT(AUTO) 2.73 MIL/uL (4.00-5.50); RED CELL DISTRIBUTION WIDTH 15.3 % (11.0-15.5); WHITE BLOOD COUNT (AUTO) 1.8 K/uL (4.8-10.8)
[2020-02-12 05:40] LABS: ALBUMIN 0.7 g/dL (3.5-5.0); BILIRUBIN,TOTAL 0.1 mg/dL (0.2-1.0); CREATININE 1.1 mg/dL (0.5-1.5); POTASSIUM 4.6 mmol/L (3.5-5.1); TOTAL PROTEIN, SERUM 4.3 g/dL (6.0-8.3)
[2020-02-12 05:57] LABS: B-TYPE NATRIURETIC PEPTIDE 151 pg/mL (0-100)
[2020-02-12 06:09] LABS: % IRON SATURATION 42.2 % (22-44)
[2020-02-12] MEDS: INSULIN HUMULIN R 100 UNIT/ML 3ML SQ SCH (06:31)
[2020-02-12] MEDS: LEVOTHYROXINE 50 MCG TABLET PO SCH (06:39)
[2020-02-12 08:00] VITALS: BP 99/71
[2020-02-12] MEDS ORDERED: CYCL50CA3 PO (11:27)
[2020-02-12] MEDS ORDERED: FURO20TA6 PO (11:27)
[2020-02-12 12:00] VITALS: BP 111/55
[2020-02-21] MEDS ORDERED: CYCL25CA10 PO (01:55)
[2020-02-26] MEDS ORDERED: PRED20B PO (14:57)
[2020-02-26] MEDS ORDERED: MYCO250C36 PO (14:57)
[2020-02-26] MEDS ORDERED: Folic Acid/Vitamin B Comp W-C PO (14:57)
[2020-02-26] MEDS ORDERED: COLC0.6T70 PO (14:57)
== END 2020-02-12 17:50 | disposition home or self-care (01) | DRG 270 ==
LOC: EDH 17:58 → EDHIP 18:58 → OBSVTOIN 18:58 → 3CH 21:45 → 2BH 02-05 20:13 → 4DH 02-06 19:25
PROVIDERS: ADMIT Internal Medicine Critical Care Medicine; ATTEND Internal Medicine Critical Care Medicine
PROC: 0W9D30Z Drainage of Pericardial Cavity with Drainage Device, Percutaneous Approach (ICD-10-PCS; 2020-02-05)
PROC: 0W9D0ZZ Drainage of Pericardial Cavity, Open Approach (ICD-10-PCS; principal; 2020-02-06)
PROC: 0W9B30Z Drainage of Left Pleural Cavity with Drainage Device, Percutaneous Approach (ICD-10-PCS; 2020-02-06)
DX: I31.3 Pericardial effusion (noninflammatory) (principal); J96.21 Acute and chronic respiratory failure with hypoxia; J90 Pleural effusion, not elsewhere classified; N04.9 Nephrotic syndrome with unspecified morphologic changes; I42.9 Cardiomyopathy, unspecified; I31.4 Cardiac tamponade; M06.9 Rheumatoid arthritis, unspecified; I27.20 Pulmonary hypertension, unspecified; D72.819 Decreased white blood cell count, unspecified; E06.3 Autoimmune thyroiditis; E66.9 Obesity, unspecified; Z68.35 Body mass index [BMI] 35.0-35.9, adult; E78.00 Pure hypercholesterolemia, unspecified; E86.0 Dehydration; E87.5 Hyperkalemia; F41.9 Anxiety disorder, unspecified; I10 Essential (primary) hypertension; I27.21 Secondary pulmonary arterial hypertension; I27.81 Cor pulmonale (chronic); J98.4 Other disorders of lung; Z79.899 Other long term (current) drug therapy; Z87.441 Personal history of nephrotic syndrome; Z99.81 Dependence on supplemental oxygen; I95.9 Hypotension, unspecified; E87.70 Fluid overload, unspecified
CPT/HCPCS: 36415; 71045; 71046; 80048; 80053; 82150; 82570; 82945; 82948; 83540; 83550; 83615; 83735; 83880; 83986; 84100; 84132; 84156; 84157; 84166; 85025; 85027; 85610; 85730; 86850; 86900; 86901; 87071; 87116; 87205; 87206; 89051; 93005; 93306; 93356; 93970; 93971; 94664; 94760; 97039; A4606; A7048; C1729; G0378; J0690; J1644; J1940; J2001; J2250; J2405; J2704; J3490; J7030; J7070

== ENCOUNTER 2020-02-20 13:33 | Inpatient (IN) | payer OTHER ==
[~2020-02-20] VITALS: Ht 149.9 cm; Wt 77.2 kg
[2020-02-20] MEDS ORDERED: LIDOCAINE HCL 1% 20 ML VIAL ONE (14:29)
[2020-02-20] MEDS ORDERED: SODIUM CHLORIDE 0.9% 10 ML VIAL IVP SCH (14:45)
[2020-02-20] MEDS ORDERED: ACETAMINOPHEN 325 MG TAB PO PRN ×2 (14:45→16:30)
[2020-02-20] MEDS ORDERED: GUAIFENESIN-DM 200/20 MG 10 ML PO PRN (14:45)
[2020-02-20] MEDS ORDERED: MAG HYDROX/AL HYDROX/SIMETH ES 30 ML SUSP UDCUP PO PRN (14:45)
[2020-02-20] MEDS ORDERED: ZOLPIDEM TARTRATE 5 MG TAB PO PRN (16:30)
[2020-02-20] MEDS ORDERED: LACTULOSE 20 GM/30 ML UDCUP PO PRN (16:30)
[2020-02-20] MEDS ORDERED: HYDRALAZINE HCL 20 MG/ML VIAL IV PRN (16:30)
[2020-02-20] MEDS ORDERED: LOPERAMIDE HCL 2 MG CAP PO PRN (16:30)
[2020-02-20] MEDS ORDERED: ACETAMINOPHEN-CODEINE 300/30MG TAB PO PRN (16:30)
[2020-02-20] MEDS ORDERED: IPRATROPIUM/ALBUTEROL SULFATE 3 ML SOLUTION IH PRN (16:30)
[2020-02-20] MEDS ORDERED: LABETALOL 20 MG/4 ML DISP.SYRIN IV PRN (16:30)
[2020-02-20] MEDS ORDERED: ACETAMINOPHEN 325 MG TAB ONE (16:57)
[2020-02-20 21:30] VITALS: BP 160/65; PULSE 59; RESP 20; TEMP 98.5
[2020-02-20 23:58] VITALS: BP 111/56; PULSE 85; RESP 18; TEMP 98.3
[2020-02-21] VITALS (8 sets, daily range): BP systolic 101–120; BP diastolic 37–57; PULSE 47–105; RESP 18–22; TEMP 98.5–99.2
[2020-02-21] MEDS: CYCLOPHOSPHAMIDE 50 MG PO SCH ×2 (09:00→20:57)
[2020-02-21] MEDS: PANTOPRAZOLE SODIUM 40 MG TABLET.DR PO SCH (09:28)
[2020-02-21] MEDS: SILDENAFIL CITRATE 20 MG TABLET PO SCH ×3 (09:28→20:56)
[2020-02-21] MEDS: LEVOTHYROXINE 50 MCG TABLET PO SCH (09:28)
[2020-02-21] MEDS: FUROSEMIDE 20 MG TABLET PO SCH (09:29)
--- NOTE | 2020-02-21 12:14 | NUR ---
DACIA NOTE/IA MEET WITH PATIENT IN ROOM. PER PATIENT LIVES WITH MINOR AND SISTER, INDEPENDENT WITH ADLS, NO USE OF DME OR PROVIDER SERVICES, AND FEELS SAFE TO RETURN HOME ONCE DISCHARGED. Addendum: 02/21/20 at 1215 by POLO ARITA RN CM Amended: Links added.
[2020-02-21] MEDS: ONDANSETRON HCL 4 MG/2 ML VIAL IVP PRN (12:35)
--- NOTE | 2020-02-21 19:50 | NUR ---
PM Assessment Received pt looking weak/tired but claimed she feels much better, denies discomfort. Right thoracentesis puncture site checked, dressing dry/intact. Pt encourage & did 10x IS but encourage not to do it too fast. Pt re-instructed by demonstration on how to properly do the IS. Able to do [id number]. Routine assessment done, plan of care discuss with all concern questions addressed.
[2020-02-21] MEDS: SIMVASTATIN 10 MG TABLET PO SCH (20:56)
[2020-02-22] VITALS (10 sets, daily range): BP systolic 95–116; BP diastolic 49–60; PULSE 84–102; RESP 16–18; TEMP 98.5–99.2
--- NOTE | 2020-02-22 04:22 | NUR ---
Re: H&H 6.02/14.6 [facility] group supervisor functional testing, Miguelito Madrid, re: H&H result, pending call back, pt VS stable, no active bleeding s/p Thoracentesis 02/20/2020 A7 02/21/2020
--- NOTE | 2020-02-22 05:14 | NUR ---
Re: ordered blood transfusion Approach pt & made aware that her blood count H&H had drop to 6.6/20.6, received order for blood transfusion 1 unit, possible blood transfusion reaction like fever, headache, chest pain, rash, SOB need to be reported KELSEY. Assurance given that blood will be tested for compatibility as pt had some doubt. Consent obtain at this time.
[2020-02-22] MEDS ORDERED: SODIUM CHLORIDE 0.9% 250 ML IV ONE (05:21)
--- NOTE | 2020-02-22 08:30 | NUR ---
[facility] TRANSFUSION STARTED AFTER S/S OF ADVERSE REACTION EXPLAINED TO PT. VERBALIZED UNDERSTANDING AND CALL LIGHT WITHIN REACH, VERBALIZED ABILITY TO USE. ROOM DOOR OPEN, PT. VISIBLE FROM NURSE'S STATION.
--- NOTE | 2020-02-22 08:45 | NUR ---
[facility] TRANSFUSION IN PROGRESS. TOLERATES W/O C/O. CALL LIGHT WITHIN REACH.
[2020-02-22] MEDS ORDERED: FUROSEMIDE 10 MG/ML 2ML VIAL IV SCH (10:00)
--- NOTE | 2020-02-22 12:00 | NUR ---
[facility] TRANSFUSION COMPLETED. TOLERATED W/O C/O. CALL LIGHT WITHIN REACH.
[2020-02-22] MEDS: LEVOTHYROXINE 50 MCG TABLET PO SCH (12:01)
[2020-02-22] MEDS: PANTOPRAZOLE SODIUM 40 MG TABLET.DR PO SCH (12:02)
[2020-02-22] MEDS: FUROSEMIDE 20 MG TABLET PO SCH (12:02)
[2020-02-22] MEDS: SILDENAFIL CITRATE 20 MG TABLET PO SCH ×3 (12:02→21:41)
[2020-02-22] MEDS: CYCLOPHOSPHAMIDE 50 MG PO SCH ×2 (12:03→21:41)
[2020-02-22] MEDS ORDERED: PHARMACY COMMUNICATION MISC SCH (15:30)
[2020-02-22] MEDS: ONDANSETRON HCL 4 MG/2 ML VIAL IVP PRN (16:49)
--- NOTE | 2020-02-22 16:51 | NUR ---
NOTIFIED ARRON WHITE, PHARMACIST, JUDAH, STATES UNABLE TO OBTAIN AMBRISENTAN ORDERED; VERBALIZED UNDERSTANDING. NO NEW ORDERS RECEIVED.
[2020-02-22] MEDS: SIMVASTATIN 10 MG TABLET PO SCH (21:42)
[2020-02-23] VITALS (7 sets, daily range): BP systolic 93–113; BP diastolic 55–62; PULSE 62–96; RESP 16–19; TEMP 98.4–100
[2020-02-23] MEDS: AMBRISENTAN 5 MG PO SCH (09:00)
[2020-02-23] MEDS: CYCLOPHOSPHAMIDE 50 MG PO SCH ×2 (09:00→15:17)
[2020-02-23] MEDS: SILDENAFIL CITRATE 20 MG TABLET PO SCH ×3 (12:52→20:57)
[2020-02-23] MEDS: FUROSEMIDE 20 MG TABLET PO SCH (12:52)
[2020-02-23] MEDS: PANTOPRAZOLE SODIUM 40 MG TABLET.DR PO SCH (12:52)
[2020-02-23] MEDS ORDERED: METHYLPREDNISOLONE SOD SUCC 125MG/2ML VIAL IVP SCH (14:15)
[2020-02-23] MEDS: ENOXAPARIN SODIUM 80 MG/0.8 ML SQ SCH (15:17)
[2020-02-23] MEDS: SIMVASTATIN 10 MG TABLET PO SCH (20:57)
[2020-02-24] VITALS (8 sets, daily range): BP systolic 103–126; BP diastolic 56–75; PULSE 68–98; RESP 18; TEMP 98.2–98.9
[2020-02-24] MEDS: LEVOTHYROXINE 50 MCG TABLET PO SCH (06:09)
--- NOTE | 2020-02-24 08:00 | NUR ---
ASSESSMENT PT IS AAOX3 DENIES CP DENIES SOB DENIES NV AT THIS TIME, RESTING IN BED. NO VISIBLE SIGNS OF DISTRESS NOTED. CALL LIGHT WITHIN REACH. NOTED EDEMA 3+ TO ALL 4 EXT. CALL LIGHT WITHIN REACH.
[2020-02-24] MEDS: SILDENAFIL CITRATE 20 MG TABLET PO SCH ×3 (08:37→21:46)
[2020-02-24] MEDS: ENOXAPARIN SODIUM 80 MG/0.8 ML SQ SCH (08:37)
[2020-02-24] MEDS: FUROSEMIDE 20 MG TABLET PO SCH (08:38)
[2020-02-24] MEDS: COLCHICINE 0.6 MG TABLET PO SCH (08:38)
[2020-02-24] MEDS: PANTOPRAZOLE SODIUM 40 MG TABLET.DR PO SCH (08:38)
[2020-02-24] MEDS: AMBRISENTAN 5 MG PO SCH (09:00)
[2020-02-24] MEDS ORDERED: CYCLOPHOSPHAMIDE 50 MG PO SCH (09:00)
[2020-02-24] MEDS ORDERED: MYCOPHENOLATE MOFETIL 250 MG CAPSULE PO SCH (10:30)
[2020-02-24] MEDS: ONDANSETRON HCL 4 MG/2 ML VIAL IVP PRN (12:36)
[2020-02-24] MEDS: PREDNISONE 20 MG TABLET PO SCH ×2 (13:40→21:46)
--- NOTE | 2020-02-24 15:00 | NUR ---
CALLED [facility] TO CHECK STATUS ON ROOM AVAILABILITY FOR TRANSFER. PATIENTS BROTHER ABDIAS ROJAS IS REQUESTING TRANSFER TO [facility]. NO ROOMS ACCORDING TO R TRANSFER CENTER. BROTHER NOTIFIED NO ROOMS AVAILABLE AT [facility]
[2020-02-24] MEDS: SIMVASTATIN 10 MG TABLET PO SCH (21:46)
[2020-02-24] MEDS: MYCOPHENOLATE MOFETIL 250 MG CAPSULE PO SCH (21:46)
[2020-02-25] VITALS (7 sets, daily range): BP systolic 99–125; BP diastolic 61–74; PULSE 70–84; RESP 16–18; TEMP 97.9–98.5
[2020-02-25] MEDS: LEVOTHYROXINE 50 MCG TABLET PO SCH (06:36)
[2020-02-25] MEDS: FUROSEMIDE 20 MG TABLET PO SCH (08:48)
[2020-02-25] MEDS: PANTOPRAZOLE SODIUM 40 MG TABLET.DR PO SCH (08:48)
[2020-02-25] MEDS: PREDNISONE 20 MG TABLET PO SCH ×3 (08:48→20:12)
[2020-02-25] MEDS: SILDENAFIL CITRATE 20 MG TABLET PO SCH ×3 (08:48→20:12)
[2020-02-25] MEDS: COLCHICINE 0.6 MG TABLET PO SCH (08:48)
[2020-02-25] MEDS: MYCOPHENOLATE MOFETIL 250 MG CAPSULE PO SCH ×2 (08:49→20:12)
[2020-02-25] MEDS: AMBRISENTAN 5 MG PO SCH (08:49)
--- NOTE | 2020-02-25 12:21 | NUR ---
DR. B[place] IN TO SEE PT. ORDERS GIVEN AND ENTERED.
[2020-02-25] MEDS: ENOXAPARIN SODIUM 80 MG/0.8 ML SQ SCH (16:48)
[2020-02-25] MEDS: SIMVASTATIN 10 MG TABLET PO SCH (20:12)
[2020-02-26] VITALS (9 sets, daily range): BP systolic 113–128; BP diastolic 67–75; PULSE 65–84; RESP 18; TEMP 97.4–98.2
[2020-02-26] MEDS: LEVOTHYROXINE 50 MCG TABLET PO SCH (05:36)
--- NOTE | 2020-02-26 08:15 | NUR ---
AM ASSESSMENT PT SITTING IN CARDIAC RECLINER, WATCHING TV. A/O X 3. SOB ON EXERTION. O2 NC @ 2L. PT TO GET O2 EXTENSION. PT USES HOME O2. NO DISTRESS NOTED. DENIES CHEST PAIN OR DISCOMFORT. DENIES PALPITATIONS. TELE: SR. DENIES N/V AND/OR DIARRHEA. GENERALIZED EDEMA. BLE EDEMA, NON-PITTING +1. UP W/ASSISTANCE. INSTRUCTED TO CALL FOR ASSISTANCE. CALL STANLEY W/IN REACH.
[2020-02-26] MEDS: AMBRISENTAN 5 MG PO SCH (08:26)
[2020-02-26] MEDS: PANTOPRAZOLE SODIUM 40 MG TABLET.DR PO SCH (08:26)
[2020-02-26] MEDS: PREDNISONE 20 MG TABLET PO SCH ×3 (08:26→21:28)
[2020-02-26] MEDS: MYCOPHENOLATE MOFETIL 250 MG CAPSULE PO SCH ×2 (08:26→21:28)
[2020-02-26] MEDS: FOLIC ACID/VITAMIN B COMP W-C 1 CAP TAB PO SCH (08:26)
[2020-02-26] MEDS: FUROSEMIDE 20 MG TABLET PO SCH (08:26)
[2020-02-26] MEDS: COLCHICINE 0.6 MG TABLET PO SCH (08:47)
[2020-02-26] MEDS: SILDENAFIL CITRATE 20 MG TABLET PO SCH ×3 (08:47→21:28)
[2020-02-26] MEDS: ENOXAPARIN SODIUM 80 MG/0.8 ML SQ SCH (09:00)
[2020-02-26] MEDS ORDERED: SODIUM POLYSTYRENE SULFONATE 15 GM/60 ML ML PO SCH (18:30)
[2020-02-26] MEDS: SIMVASTATIN 10 MG TABLET PO SCH (21:28)
[2020-02-27 03:00] VITALS: BP 112/70; PULSE 61; RESP 18; TEMP 97.5
[2020-02-27] MEDS: LEVOTHYROXINE 50 MCG TABLET PO SCH ×2 (05:53→06:05)
[2020-02-27 06:51] VITALS: PULSE 78; RESP 18
[2020-02-27 08:26] VITALS: BP 96/45; PULSE 78; RESP 18; TEMP 97.8
[2020-02-27] MEDS: SILDENAFIL CITRATE 20 MG TABLET PO SCH (08:45)
[2020-02-27] MEDS: FOLIC ACID/VITAMIN B COMP W-C 1 CAP TAB PO SCH (08:45)
[2020-02-27] MEDS: FUROSEMIDE 20 MG TABLET PO SCH (08:46)
[2020-02-27] MEDS: MYCOPHENOLATE MOFETIL 250 MG CAPSULE PO SCH (08:46)
[2020-02-27] MEDS: COLCHICINE 0.6 MG TABLET PO SCH (08:46)
[2020-02-27] MEDS: PANTOPRAZOLE SODIUM 40 MG TABLET.DR PO SCH (08:46)
[2020-02-27] MEDS: PREDNISONE 20 MG TABLET PO SCH (08:46)
[2020-02-27] MEDS: AMBRISENTAN 5 MG PO SCH (08:47)
[2020-02-27] MEDS: ENOXAPARIN SODIUM 80 MG/0.8 ML SQ SCH (08:52)
[2020-02-27 11:43] VITALS: BP 98/63; PULSE 74; RESP 18; TEMP 97.9
--- NOTE | 2020-02-27 13:01 | NUR ---
CM NOTE TERELL DAVISON, APPROACHED ME FOR ELIQUIS COUPON. PATIENT BEING DISCHARGED TODAY WITH 30 DAY ELIQUIS RX. ELIQUIS COUPON GIVEN TO TERELL DAVISON.
--- NOTE | 2020-02-27 13:05 | NUR ---
HL REMOVED, CATHETER INTACT. DISCHARGE INSTRUCTIONS GIVEN, INCLUDING NEED FOR ELIQUIS PER VARSHA WHITEP, PT. VERBALIZED UNDERSTANDING.
--- NOTE | 2020-02-27 13:18 | NUR ---
DISCHARGED HOME VIA W/C WITH BELONGINGS ACCOMPANIED BY DARLINE MORALEZ.
== END 2020-02-27 13:20 | disposition home or self-care (01) | DRG 189 ==
LOC: EDH 13:33 → EDHIP 13:34 → 4CH 21:25 → 4AH 02-22 18:36 → 4CH 02-23 17:08
PROVIDERS: ADMIT Internal Medicine Pulmonary Disease; ATTEND Internal Medicine Pulmonary Disease
PROC: 0W9B3ZZ Drainage of Left Pleural Cavity, Percutaneous Approach (ICD-10-PCS; principal; 2020-02-20)
PROC: 0W993ZZ Drainage of Right Pleural Cavity, Percutaneous Approach (ICD-10-PCS; 2020-02-21)
PROC: 30233N1 Transfusion of Nonautologous Red Blood Cells into Peripheral Vein, Percutaneous Approach (ICD-10-PCS; 2020-02-27)
DX: J96.21 Acute and chronic respiratory failure with hypoxia (principal); J90 Pleural effusion, not elsewhere classified; N04.2 Nephrotic syndrome with diffuse membranous glomerulonephritis; I31.3 Pericardial effusion (noninflammatory); N05.2 Unspecified nephritic syndrome with diffuse membranous glomerulonephritis; I10 Essential (primary) hypertension; I27.21 Secondary pulmonary arterial hypertension; E06.3 Autoimmune thyroiditis; E87.70 Fluid overload, unspecified; D64.9 Anemia, unspecified; E03.9 Hypothyroidism, unspecified; M06.9 Rheumatoid arthritis, unspecified; E87.5 Hyperkalemia; E78.5 Hyperlipidemia, unspecified; D72.819 Decreased white blood cell count, unspecified; D63.8 Anemia in other chronic diseases classified elsewhere; M32.14 Glomerular disease in systemic lupus erythematosus; E66.9 Obesity, unspecified; Z68.34 Body mass index [BMI] 34.0-34.9, adult; Z99.81 Dependence on supplemental oxygen